=== PATIENT | male | born 2000 | race Caucasian/White ===

== ENCOUNTER 2020-06-01 21:40 | Emergency (ER) | payer OTHER ==
[~2020-06-01] VITALS: Ht 188 cm; Wt 76.2 kg
[2020-06-01 21:43] VITALS: TEMP 98.6
[2020-06-01] MEDS ORDERED: CEPHALEXIN500 M1 PO (21:57)
[2020-06-01 22:10] VITALS: BP 122/83; PULSE 90
== END 2020-06-01 22:10 | disposition home or self-care (01) ==
LOC: COL.ER 21:40
DX: S61.204A Unspecified open wound of right ring finger without damage to nail, initial encounter (principal); L08.9 Local infection of the skin and subcutaneous tissue, unspecified; F17.210 Nicotine dependence, cigarettes, uncomplicated; X16.XXXA Contact with hot heating appliances, radiators and pipes, initial encounter

== ENCOUNTER 2020-08-17 01:40 | Emergency (ER) | payer OTHER ==
[~2020-08-17] VITALS: Ht 188 cm; Wt 77.3 kg
[~2020-08-17 01:40] MED LIST: CEPHALEXIN500 M1 PO
[2020-08-17 02:45] VITALS: BP 123/76; PULSE 87; TEMP 98.2
== END 2020-08-17 02:46 | disposition home or self-care (01) ==
LOC: COL.ER 01:40
DX: S60.211A Contusion of right wrist, initial encounter (principal); W20.8XXA Other cause of strike by thrown, projected or falling object, initial encounter